=== PATIENT | female | born 1975 | race Caucasian/White ===

== ENCOUNTER 2022-07-10 15:20 | Emergency (ER) | payer OTHER ==
[2022-07-10 17:48] LABS: BASOPHIL 0.2 % (0-2); EOSINOPHIL 0.4 % (0-5); HCT 38.7 % (37.0-47.0); HGB 13.3 g/dl (12.5-16.0); LYMPHOCYTE 15.5 % (15-48); MCH 31.7 pg (25.0-31.0); MCHC 34.4 g/dL (32.0-36.0); MCV 92.4 fL (78.0-100.0); MONOCYTE 7.3 % (0-12); MPV 9.6 fL (6.0-9.5); NEUTROPHIL 76.2 % (41-80); NRBC 0; PLT 208 K/uL (150-400); RBC 4.19 M/uL (4.20-5.40); RDW 12.1 % (11.5-14.0); WBC 15.8 K/uL (4.0-10.5)
[2022-07-10 17:50] LABS: BILIRUBIN NEGATIVE (NEGATIVE); BLOOD NEGATIVE Ery/uL (NEGATIVE); CLARITY CLEAR (CLEAR); COLOR YELLOW (YELLOW); GLUCOSE (U) NORMAL (NORMAL); LEUKOCYTES NEGATIVE Leu/uL (NEGATIVE); NITRITE NEGATIVE (NEGATIVE); PROTEIN NEGATIVE (NEGATIVE); UROBILINOGEN 0.2 mg/dL (0.2-1.0)
[2022-07-10 17:59] LABS: AMPHETAMINES NEGATIVE (NEGATIVE); BARBITURATES NEGATIVE (NEGATIVE); ECSTASY (MDMA) NEGATIVE (NEGATIVE); MARIJUANA (THC) NEGATIVE (NEGATIVE); METHADONE NEGATIVE (NEGATIVE); OPIATES NEGATIVE (NEGATIVE); OXYCODONE NEGATIVE (NEGATIVE)
[2022-07-10 18:30] LABS: LACTIC ACID 0.7 mmol/L (0.4-1.9)
[2022-07-10 18:58] LABS: CORONAVIRUS 2019 SARS-COV-2 NEGATIVE (NEGATIVE); INFLUENZA A NAA NEGATIVE (NEGATIVE)
[2022-07-10 18:58] LABS: ALBUMIN 3.8 g/dL (3.4-5.0); BUN/CREAT RATIO (CALC) 14.5 RATIO; CREATININE 0.69 mg/dL (0.51-0.95); GLOBULIN (CALCULATION) 3.1 g/dL; POTASSIUM 3.7 mmol/L (3.5-5.1); TOTAL PROTEIN 6.9 g/dL (6.4-8.2)
[2022-07-11 04:54] LABS: BILIRUBIN - TOTAL 0.2 mg/dL (0.2-1.0)
== END 2022-07-10 19:15 | disposition home or self-care (01) ==
LOC: FER 15:20
PROVIDERS: Emergency Medicine
DX: R55 Syncope and collapse (principal); I10 Essential (primary) hypertension; Z20.822 Contact with and (suspected) exposure to COVID-19; Z87.891 Personal history of nicotine dependence; Z79.899 Other long term (current) drug therapy
CPT/HCPCS: 36415; 71045; 80053; 80305; 81003; 83605; 84484; 85025; 85379; U0002